=== PATIENT | male | born 1965 | race Caucasian/White ===

== ENCOUNTER 2021-06-10 14:59 | Outpatient (CLI) | payer OTHER | END 2021-06-10 15:00 | disposition home or self-care (01) | LOC: COV 14:59 | PROVIDERS: ATTEND Ophthalmology | DX: Z01.812 Encounter for preprocedural laboratory examination (principal); Z20.822 Contact with and (suspected) exposure to COVID-19 ==

== ENCOUNTER 2021-07-24 07:26 | Day surgery (SDC) | payer OTHER ==
[2021-07-24] MEDS ORDERED: PHENYLEPHRINE 2.5% OPHTH 2 ML DROPS ONE (07:40)
[2021-07-24] MEDS ORDERED: PROPARACAINE 0.5% OPHTH DROPS 15 ML ONE (07:40)
[2021-07-24] MEDS ORDERED: CYCLOPENTOLATE 1% OPHTH DROPS 2 ML ONE (07:40)
[2021-07-24] MEDS ORDERED: KETOROLAC 0.45% OPHTH DROPS ONE (07:40)
[2021-07-24] MEDS ORDERED: LACTATED RINGERS 1,000 ML IV ONE ×2 (07:42→10:21)
--- NOTE | 2021-07-24 09:14 | ANESTHESIA ---
Pre-Anesthesia VS, & Labs - Diagnosis right senile combined cataract - Procedure right cataract extraction with lens implant Vital Signs: Temp Pulse Resp BP Pulse Ox 36.5 C 67 18 131/81 H 97 07/24/21 07:47 07/24/21 07:47 07/24/21 07:47 07/24/21 07:47 07/24/21 07:47 Height: 6 ft 4 in Weight (kg): 132 kg Body Mass Index: 35.4 BMI Classification: Obese - NPO >8 hours - Lab Results Lab results reviewed: Yes Home Medications and Allergies Home Medications: Ambulatory Orders No Known Home Medications 07/23/21 No Known Home Medications 07/23/21 Allergies/Adverse Reactions: Allergies Allergy/AdvReac Type Severity Reaction Status Date / Time No Known Drug Allergies Allergy Verified 07/23/21 14:52 Anes History & Medical History - Anesthetic History Anesthesia Complications: reports: No previous complications Family history of Anesthesia Complications: Denies Family history of Malignant Hyperthermia: Denies - Medical History Cardiovascular: reports: Arrhythmia, Other Pulmonary: reports: Sleep apnea (uses CPAP nightly) Gastrointestinal: reports: Colon polyps Urinary: reports: None Neuro: reports: None Musculoskeletal: reports: Chronic back pain Endocrine/Autoimmune: reports: None, Other (pre diabetic) Blood Disorders: reports: None Skin: reports: None Smoking Status: Never smoker Psychosocial: reports: Anxiety History of Cancer?: Yes (skin CA) - Surgical History General: reports: Colonoscopy Eyes Ears Nose Throat (EENT): reports: Cataracts, Tonsil/Adenoidectomy Urologic: reports: Testicular surgery Orthopedic: reports: Other Dermatologic: reports: Skin cancer surgery Exam General: Alert, Oriented x3, Cooperative, No acute distress Dental: Other (several crowns) Mouth Openin Fingerbreadth Neck Mobility: Normal Mallampati classification: II Respiratory: Lungs clear, Normal breath sounds, No respiratory distress, No accessory muscle use Cardiovascular: Regular rate, Normal S1, Normal S2, No murmurs Abdomen: Normal bowel sounds, Soft, No tenderness, No hepatospenomegaly, No masses Extremities: No clubbing, No cyanosis, No edema, Normal pulses, No tenderness/swelling Neurological: Normal gait, Normal speech, Strength at 5/5 X4 ext, Normal tone, Sensation intact, Cranial nerves 3-12 NL, Reflexes 2+ Cognitive Status: Within normal limits Plan Anesthesia Type: MAC Consent for Procedure(s) Verified and Reviewed: Yes Code Status: Attempt Resuscitation ASA classification: 2-Mild systemic disease Is this case an emergency?: No
[2021-07-24] MEDS ORDERED: MIDAZOLAM 2 MG/2 ML VIAL ONE (09:51)
[2021-07-24] MEDS ORDERED: BRIMONIDINE 0.2% OPHTH DROPS 5 ML OPTH ONE (09:51)
[2021-07-24] MEDS ORDERED: BSS/LIDOCAINE/EPINEPHRINE 1 ML SYRINGE IO ONE (09:52)
[2021-07-24] MEDS ORDERED: EPINEPHrine 1 MG/ML AMP IR ONE (09:52)
[2021-07-24] MEDS ORDERED: CHONDR SULF/HYALURONATE SYRINGE IO ONE (09:52)
[2021-07-24] MEDS ORDERED: TIMOLOL 0.5% OPHTH DROPS OPTH ONE (09:52)
[2021-07-24] MEDS ORDERED: TRIAMCIN/MOXIFLOX OPHTHALMIC 0.6 ML VIAL IO ONE (09:53)
[2021-07-24] MEDS ORDERED: VANCOMYCIN OPHTHALMI 8MG/0.8ML 8 MG/0.8 ML SYRINGE IO ONE (09:53)
[2021-07-24] MEDS ORDERED: PROPARACAINE 0.5% OPHTH DROPS 15 ML EACHEYE ONE (09:53)
--- NOTE | 2021-07-24 10:26 | ANESTHESIA POST OP EVALUATION ---
Anesthesia Post Eval - Post Anesthesia Eval Vitals: Last Vital Signs Temp 36.2 C L 07/24/21 10:20 Pulse 63 07/24/21 10:20 Resp 16 07/24/21 10:20 BP 123/77 07/24/21 10:20 Pulse Ox 99 07/24/21 10:20 CV Function Including HR & BP: Stable Pain Control: Satisfactory Nausea & Vomiting: Negative Mental Status: Baseline Respiratory Status: Airway Patent Hydration Status: Satisfactory Anesthesia Complications: None
--- NOTE | 2021-07-24 10:35 | OPERATIVE REPORT ---
Operative Report - Other Other Information/Narrative: Date of Surgery: 07/24/21 Preop Dx: Visually significant cataract right eye status-post retinal detachment and pars plana vitrectomy for retinal detachment repair. This was his first cataract surgery. Postop Dx: Same Procedure: Phacoemulsification with posterior chamber intraocular lens implant right eye Surgeon: Dr. Nickolas Rosas Anesthesia: Monitored anesthesia care Complications: None Operative Indications: This is a 55-year-old M with progressive vision loss in the right eye due to 2+ nuclear sclerotic posterior polar cataract. Best corrected visual acuity was 20/70 with glare to 20/630 vision in the right eye. Indications for surgery were: - Overall decrease in vision - Difficulty seeing words on a computer screen - Difficulty reading - Difficulty seeing street signs - Difficulty driving in low light or at night - Difficulty driving at night because of headlights from other vehicles - Difficulty with glare or bright lights in any situation The patient was consented at length concerning the risks and benefits of cataract surgery after which the patient expressed a desire to proceed with surgery. Operative Procedure: The patient was taken into OR#3 and placed under monitored anesthesia care. A surgical time-out was conducted confirming correct patient, correct procedure, and correct surgical site. The patient was given topical anesthesia and then prepped and draped in the usual sterile fashion. The eye was entered at the 6 and 3 oclock positions. Intracameral Shugarcaine was injected into the anterior chamber followed by a dispersive viscoelastic. A continuous-tear curvilinear capsulorhexis was performed. The nucleus was hydrodi ssected and phacoemulsified. The cortex was evacuated using automated infusion and aspiration. A cohesive viscoelastic was injected into the capsular bag and a 18.5 diopter intraocular lens was inserted into the bag. Infusion and aspiration were used to evacuate the viscoelastic materials from the eye. The wounds were hydrated and the eye inflated to physiologic pressure using balanced salt solution. Approximately 0.25ml of a mixture of triamcinolone and moxifloxacin was injected trans-sclerally into the vitreous in the inferotemporal quadrant using a 30 gauge cannula. An additional 0.55ml of a mixture of triamcinolone, moxifloxacin, and vancomycin was injected subconjunctivally in the superior quadrant for infection and inflammation prophylaxis. Wound integrity was checked with Weck-Maranda sponges. The patient was taken from the operating room in good condition and given post-op instructions.
[2021-07-24 10:42] VITALS: BP 121/78
== END 2021-07-24 07:27 | disposition home or self-care (01) ==
LOC: SDS 07:26
PROVIDERS: ATTEND Ophthalmology
DX: H25.811 Combined forms of age-related cataract, right eye (principal); E66.9 Obesity, unspecified; Z68.35 Body mass index [BMI] 35.0-35.9, adult; G47.30 Sleep apnea, unspecified
CPT/HCPCS: 66984; A9270; J3490; J7120; V2787

== ENCOUNTER 2024-03-16 08:27 | Outpatient (CLI) | payer OTHER ==
--- NOTE | 2024-03-16 09:20 | Sleep Patient Instructions ---
Sleep Center Visit Summary - Patient Visit Information Reason for Visit: Initial consultation - Patient Instructions Additional Instructions: You will continue with CPAP therapy with pressure set at 7-17 cmH2O. A supply prescription will be updated with your DME. I have ordered another sleep study to get new baseline since your weight loss. You will be called to schedule this if we are able to get authorization. We encourage you to continue to try to lose weight. Please follow up with the sleep care office after sleep study or in 1 year. - Clinic Information Contact: [facility] [address] [place] [address] [email or web address] T: [phone]
--- NOTE | 2024-03-16 09:25 | SLEEP CARE CONSULTATION ---
Information from patient questionnaire entered by Saima Sheppard. I have reviewed and concur with the information entered by Saima Sheppard. This document represents the service I personally performed and the decisions made by me, Nessa Snyder ARNP. History of Present Illness Service Date and Time: 03/16/2024826 Reason for Visit: New patient, Previously diagnosed sleep apnea, sleep apnea on CPAP therapy Chief Complaint: reports: Observed pauses in breathing, Other (F/U CPAP PREVIOUS SLEEP APNEA PREVIOUS DIAGNOSIS) Usual bedtime: 2100 Time it takes to fall asleep: VERY LITTLE TIME Snores at night: Yes Observed to quit breathing while asleep: Yes Sleeps alone due to snoring: No Number of times waking at night: 1-3 Reasons for waking at night: reports: Bathroom, Other (UNKNOWN) Toss, Turn, or Twitch while sleeping: Yes Recalls having dreams: Yes Usually gets out of bed at: [id number] Feels refreshed in the morning: Yes Morning headache: No Sleepy or fatigued during the day: Yes Ever fallen asleep while driving: No Takes day naps: Yes Prior sleep studies: Yes Year and Where: 03/20/2020 Type of Sleep Study: Home sleep study Additional HPI information: ROSAURA QUIÑONEZ was previously diagnosed to have severe, AHI 31.6, obstructive sleep apnea-hypopnea syndrome as seen in HST dated 03/20/2020 and comes in today to establish care for CPAP therapy. - Parasomnia Symptoms Ever been unable to move upon waking from sleep: No Walks in sleep: No Talks in sleep: No Ever acted out dreams in sleep: No Ever felt weak in the knees when startled or emotional: No Bothered by creepy, crawly, restless sensations in legs: Yes Problems with memory or concentration: No CPAP Compliance Data - Data Reviewed with Patient Average duration of nightly device use: 6 hours 21 mins Compliance rate %: 88 (90/90 days used) Current pressure setting (cmH2O): 7-17 (avg 11.9, max 13.4) Average residual AHI: 1.6 Central apnea: 0.5 Obstructive apnea: 0.3 Hypopnea: 0.7 Compliance data discussion: He has an Airsense 10, set up in 05/16/2020. He gets his supplies from [employer]. He is using a [employer] nasal cushion, sw sizing. Subjective Patient concerns: reports: other. denies: aerophagia, mask discomfort, air blowing in eyes, mask leak noise, condensation in mask/hose, nasal congestion, dry mouth, nose, throat, epistaxis Observed to snore while using device: No Current pressure setting perceived as: comfortable On therapy, patient: reports: sleeping better, awakening more refreshed, being more awake and alert during the day, more rested overall. denies: drowsiness while driving Initial [place] Sleepiness Scale score: 5 (03/16/24) Past Medical History Past Medical History: reports: Other (skin melanoma, removed) Social History The patient's occupation is a FT. Patient is and lives in [place]. Have you smoked in the past 12 months: No Alcohol use: Yes Alcohol amount and frequency: rarely Caffeine use: Yes Caffeine amount and frequency: 3-5 sodas daily Family History Family history of sleep disordered breathing: Yes Family Hx Sleep Apnea: Father: Snoring, Sleep apnea - Untreated Allergies and Home Medications Known drug allergies: No Drug allergies reviewed: Yes Home medication list reviewed: Yes Allergy and home medication list: Allergies No Known Drug Allergies Allergy (Verified 03/14/24 09:04) Home Medications Medication Instructions Recorded Confirmed Last Taken Type No Known Home Medications 07/23/21 07/23/21 Unknown History Review of Systems Weight loss over past 5 years: 50 Cardiovascular: reports: leg or foot swelling. denies: high blood pressure Gastrointestinal: denies: heartburn Neurological: denies: headaches Ear/Nose/Throat: reports: tonsillectomy Musculoskeletal: reports: joint pain Physical Exam Vital signs obtained and entered by: SAIMA Del Rio MA Blood Pressure: 134/87 (RIGHT ARM) Cuff size: long Heart Rate: 55 O2 Saturation: 99 Height: 6 ft 4 in Weight: 261 lb Body Mass Index: 31.7 BMI Classification: Obese Neck circumference: 16 Heart: regular rate and rhythm Lungs: clear bilaterally Impression and Plan 1. Obstructive Sleep Apnea-Hypopnea Syndrome, severe, with good treatment compliance and good apnea control. On CPAP therapy, the patient has better sleep quality and is more rested overall. He has lost about 50 pounds in last couple years. He last had a HST in 2019. I would like to get a new baseline because of his weight loss. I will order a new PSG and see patient in followup if able to get authorization for study. I will update his supply prescription. Patient has significant improvement of their sleep apnea and is satisfied with current CPAP therapy. Patient denies problems with oral dryness, nasal congestion, epistaxis, skin irritation or aerophagia. Patient's apnea severity and rationale for treatment to reduce apnea, improve sleep quality and reduce cardiovascular and cerebrovascular events was reviewed. 2. Obesity, unspecified. Currently patients BMI is 31.7. He has lost about 45- 50 pounds in last two years and is continuing to try to lose weight. Obesity increases the risk of apnea, CPAP pressure requirements and overall health risks especially cardiovascular and diabetes. Thus patient is advised to continue to try to lose weight. * Continue auto CPAP pressure at 7-17 cmH2O * PSG/HST to verify diagnosis and severity * Update supply prescription * Notify me if snoring with mask or feeling that the pressure is too much or too little * Attempt to lose weight * Call this office if any problems using CPAP * Return for follow up after sleep study, or sooner if concerns arise Continue with device pressure at (cmH2O): 7-17 Counseling Topics: Spare mask, Weight loss health impact Prescriptions: Device supplies Follow up with Sleep Care in: other (after sleep study or in 1 year if unable to get sleep study authorized) Plan: PSG to verify diagnosis and severity Visit Type: In Office Time Spent with Patient (minutes): 40 Provider Statement: I spent 100% of the Face to Face Visit with the patient with greater than 50% spent counseling the patient and coordination of care.
[2024-03-16 09:29] VITALS: BP 134/87; O2SAT 99
== END 2024-03-16 08:28 | disposition home or self-care (01) ==
LOC: SC 08:27
PROVIDERS: ATTEND Nurse Practitioner Family
DX: G47.33 Obstructive sleep apnea (adult) (pediatric) (principal); E66.9 Obesity, unspecified; Z68.31 Body mass index [BMI] 31.0-31.9, adult
CPT/HCPCS: 99203; 99212